=== PATIENT | male | born 1940 | race Caucasian/White ===

== ENCOUNTER 2023-07-04 20:03 | Emergency (ER) | payer MEDICARE, OTHER, SELFPAY ==
[2023-07-04 20:06] VITALS: BP 182/98
[2023-07-04 21:38] VITALS: BMI 25.6
[2023-07-04 21:41] VITALS: BP 154/94
--- NOTE | 2023-07-04 21:42 | ED.GENMED ---
History of Present Illness
General
Chief Complaint: Head Injury
Source: patient
Exam Limitations: none
Time Seen by Provider: 07/04/23 20:57
Nursing documentation reviewed up to this point in time: agreed with
Travel History
Have you had any contact with someone who has COVID-19?: No
Do you have any symptoms of coronavirus? Fever > 100 degrees, chills, cough, shortness of breath, sore throat, loss of taste or smell, muscle aches, or headache?: No
History of Present Illness
History of Present Illness:
Patient is an 82-year-old male who presents the ER for evaluation after fall. reports patient had a subdural hematoma in November 2022 and ever since that has some balance issues. He was standing today to walk to the bathroom and lost his
balance fell hitting his head on the wall. She reports no loss of consciousness. He is not on blood thinners. He has a mild headache but no other complaints. Denies any neck pain.
Past History
Past History
ED Past Medical History: HTN, Hypercholesterolemia and NIDDM
ED Past Surgical History: Appendectomy and Other (Hernia repair)
Social History
Tobacco: Former smoker
Alcohol: None
Personal:
Living: with family
Review of Systems
Review of Systems
Allergies reviewed?: Yes
Other source history: family
All Other Systems: ROS reviewed and negative except as documented in HPI and ROS
Constitutional: Reports no symptoms; Denies fever, fatigue or chills
EENT: Reports no symptoms
Respiratory: Reports no symptoms
Cardiac: Reports no symptoms
ABD/GI: Denies nausea or vomiting
: Reports no symptoms
Musculoskeletal: Reports no symptoms
Skin: Reports no symptoms and other (No lacerations or abrasions)
Psychiatric: Reports no symptoms
Phy Exam
General Physical Exam
General Presentation: no apparent distress
General age: appears stated age
General Skin: warm and dry
General Habitus: normal
General Mental: alert
General Hydration: appears well hydrated
ENT Exam
ENT Exam: EOMI and neck supple
Eye Exam
Eye Exam: PERRL and EOMI
Eye Exam General: PERRL: bilateral and EOM intact: bilateral
Pupil Exam: Bilateral: round and reactive
Neurological Exam
Neurological Exam: alert and oriented x3
[place] Coma Scale
Eye Opening: Spontaneous
Verbal Response: Oriented
Motor Response: Obeys Commands
GCS Total Score: 15
Musculoskeletal Exam
Musculoskeletal Exam: other (Small redness to posterior occiput no hematoma no bony midline cervical thoracic or lumbar tenderness full range of motion to extremities patient is chronic pain in bilateral shoulders this is not new so slight decreased
range of motion of shoulders)
Skin Exam
Skin Exam: normal color and warm/dry
Psychiatric Exam
Psychiatric Exam: normal mood/affect
Course
Orders/Labs/Results
Orders:
Orders
07/04/23 20:08
CT Head W/o Iv Contrast Urgent
Comment: subdural hematoma in 11/2022
Reason For Exam: Fall, posterior head strike
07/04/23 21:43
Acetaminophen [Tylenol] 650 mg PO NOW STA
Vital Signs
Initial and Last Documented VS:
Initial Vital Signs
Temp Pulse Resp BP Pulse Ox
98.5 F 90 18 182/98 98
07/04/23 20:06 07/04/23 20:06 07/04/23 20:06 07/04/23 20:06 07/04/23 20:06
Last Documented Vital Signs
Temp Pulse Resp BP Pulse Ox
98.5 F 80 18 154/94 97
07/04/23 21:40 07/04/23 21:41 07/04/23 21:41 07/04/23 21:41 07/04/23 21:41
MDM/Problems Addressed
Differential Diagnosis Includes:
Not limited to head injury, intracranial hemorrhage
MDM/Problems Addressed:
CAT scan negative. Patient no acute distress looks well no other injuries will DC home with .
Chronic conditions affecting care:
recent subdural hematoma 11/2022 some balance issues since
*Radiology
Radiology exam reviewed: radiology read reviewed
*Pulse Oximetry
Patient hypoxic: no
*Critical Care Note
Total Time (30-74mins, 75-104mins- exclusive of procedures): Not Applicable
ED Attending Note
-
Portions of this chart may have been created with voice recognition software.� Occasional wrong word or��sound alike� substitutions may have occurred due to the inherent limitations of voice recognition software.
Discharge Plan
Departure
Patient Disposition: Home (Routine Discharge)
Date of Disposition: 07/04/23
Time of Disposition: 21:46
Patient with high blood pressure during this ER visit?: Yes
Discharge Problem:
Head injury
Instructions: Head Injury in Adults (DC)
Prescriptions:
No Action
acetaminophen 500 mg Tablet
1,000 mg PO TID
tamsulosin 0.4 mg Capsule
0.4 mg PO HS@2100 Qty: 90 0RF
metformin 1,000 mg Tablet
1,000 mg PO BID AT 0800,1700 Qty: 60 0RF
latanoprost 0.005 % Drops
1 drp ophthalmic (eye) HS Qty: 2.5 1RF
lidocaine 4 % Adhesive Patch,Medicated
1 patch topical DAILY Qty: 30 1RF
polyethylene glycol 3350 [HealthyLax] 17 gram Powder In Packet
17 g PO DAILY Qty: 30 1RF
ascorbic acid (vitamin C) [Vitamin C] 500 mg Tablet
500 mg PO DAILY Qty: 90 0RF
pantoprazole 40 mg Tablet,Delayed Release (Dr/Ec)
40 mg PO DAILY Qty: 90 0RF
magnesium oxide 500 mg Tablet
500 mg PO DAILY Qty: 30 1RF
cholecalciferol (vitamin D3) 25 mcg (1,000 unit) Tablet
25 mcg PO DAILY Qty: 90 0RF
melatonin 5 mg Tablet
10 mg PO HS Qty: 30 1RF
multivitamin with folic acid [Tab-A-Mag] 400 mcg Tablet
1 tab PO DAILY Qty: 90 0RF
clotrimazole [Athlete's Foot (clotrimazole)] 1 % Cream
1 applic topical BID Qty: 1 1RF
sodium chloride 1,000 mg Tablet,Soluble
1,000 mg PO DAILY Qty: 30 0RF
diclofenac sodium [Voltaren Arthritis Pain] 1 % Gel
2 g topical QID Qty: 100 0RF
hydrocortisone 1 % Cream
1 applic topical BIDPRN PRN (Reason: AFFECTED RASH FOR ITCHING) Qty: 28.4 0RF
bisacodyl 10 mg Suppository
10 mg DE DAILYPRN PRN (Reason: constipation after oral bisacodyl) Qty: 10 0RF
docusate sodium 100 mg Capsule
100 mg PO BID Qty: 60 0RF
bisacodyl 5 mg Tablet,Delayed Release (Dr/Ec)
10 mg PO DAILY PRN (Reason: constipation) Qty: 60 0RF
Referrals:
Prince Bergman PA [Family Provider] -
Activity Restrictions/Additional Instructions:
Follow-up with family doctor in the next several days as needed .
return if any worsening of symptoms.
Interventions
Interventions:
*Risk Screen - Suicide Last Done: 07/04/23 21:40
*General Assessment Last Done: 07/04/23 21:40
*Neglect/Abuse Screening Last Done: 07/04/23 21:40
*ED COVID-19 Vaccine History Last Done: 07/04/23 21:40
ED- Neurological Assessment Last Done: 07/04/23 21:41
ED-Skin Assessment Last Done: 07/04/23 21:41
Discharge Date and Time
Print Language: BULGARIAN
[2023-07-04] MEDS: TYLENOL 650 MG PO (21:48)
== END 2023-07-04 22:28 | disposition home or self-care (01) ==
LOC: EMR 20:03
PROVIDERS: EMERGENCY PHYSICIAN Emergency Medicine; FAMILY PHYSICIAN Physician Assistant
DX: S09.90XA Unspecified injury of head, initial encounter (principal); W01.198A Fall on same level from slipping, tripping and stumbling with subsequent striking against other object, initial encounter; I10 Essential (primary) hypertension; E11.9 Type 2 diabetes mellitus without complications; E78.00 Pure hypercholesterolemia, unspecified; F03.90 Unspecified dementia, unspecified severity, without behavioral disturbance, psychotic disturbance, mood disturbance, and anxiety; K22.70 Barrett's esophagus without dysplasia; K57.92 Diverticulitis of intestine, part unspecified, without perforation or abscess without bleeding; M19.90 Unspecified osteoarthritis, unspecified site; F32.A Depression, unspecified; F90.9 Attention-deficit hyperactivity disorder, unspecified type; Z85.46 Personal history of malignant neoplasm of prostate; Z87.820 Personal history of traumatic brain injury; Z87.891 Personal history of nicotine dependence
CPT/HCPCS: 99284; 70450

== ENCOUNTER → 2024-09-27 11:28 | Outpatient (REF) | payer MEDICARE, OTHER, SELFPAY | LOC: HWRAD 11:28 | PROVIDERS: ATTENDING PHYSICIAN Physician Assistant | DX: E83.52 Hypercalcemia (principal) | CPT/HCPCS: 71046 ==